=== PATIENT | female | born 1945 | race Caucasian/White ===

== ENCOUNTER 2022-03-01 08:25 | Day surgery (SDC) | payer OTHER, SELFPAY ==
[2022-02-21 08:53] VITALS: BMI 29.6
[2022-03-01] VITALS (9 sets, daily range): BP systolic 110–155; BP diastolic 50–93; PULSE 55–74; RESP 14–18; TEMP 35.9–36.8; O2SAT 91–99; BMI 29.6
[2022-03-01] MEDS: ACETAMINOPHEN 325 MG TABLET 975 MG PO (09:28)
[2022-03-01] MEDS: CELECOXIB 200 MG CAPSULE PO (09:29)
[2022-03-01] MEDS: PREGABALIN 75 MG CAPSULE PO (09:29)
[2022-03-01] MEDS: LACTATED RINGERS 1,000 ML 42 ML IV (09:31)
[2022-03-01] MEDS: VANCOMYCIN 1,000 MG/200 ML PIGGYBACK 200 MG IV (09:55)
--- NOTE | 2022-03-01 11:10 | PM.PREOP ---
Pre-operative Note COVID-19 COVID-19 status: Negative Interval Note History & Physical reviewed/Exam performed by Physician: Yes Changes to H&P: No
--- NOTE | 2022-03-01 11:11 | PM.OP.1 ---
Operative Date/Time/Diagnoses Date of procedure: 03/01/22 Time of procedure: 11:11 Pre-op diagnosis: right hip OA Post-op diagnosis: same Procedure & Clinicians Procedure: Right total hip arthroplasty anterior approach Same procedure as scheduled: Yes Indications: The patient has had progressively worsening right hip pain with radiographic changes consistent with arthritis. Non-operative management has failed and the patient has requested total hip replacement. The risks, benefits and alternatives to surgery were discussed with the patient prior to proceeding. Risks discussed included, but were not limited to, failure to relieve pain, leg length discrepancy, dislocation, stiffness, infection, nerve damage, deep venous thrombosis, pulmonary embolism, stroke, coma, heart attack, permanent paralysis and , as well as the potential need for eventual revision of the prosthetic. Surgeon: Sarina Dasilva Sales Enablement Analyst: Tatiana Garcia Anesthesia Type: General and Spinal Operative Notes Findings: Severe right hip osteoarthritis, adequate stability, soft bone Closure Type: primary Specimen(s): none sent Prosthetic devices, grafts, tissues, transplants, or devices: Dasilva and nephew 46 mm R3 cup, size 3 anthology standard offset, -3 by 28 mm Oxinium head,one 6.5 mm screw Estimated Blood Loss (mL): 250 Blood products transfused: none Procedure in detail: The patient was brought to the operating room. Patient was carefully positioned in the supine position. Time-out was performed and antibiotics were given. Anesthesia was induced. She was positioned in the on the table in order to allow hyperextension of the hip. The right lower extremity was prepped and draped in a standard sterile fashion. An anterior right hip incision was made 1 fingerbreadth lateral to the anterior superior iliac spine and extended distally towards the greater trochanter. Dissection was carried out through skin and subcutaneous tissues. Superficial hemostasis was achieved. The fascia over the tensor fascia reagan was defined and incised with a knife. Two Allis clamps were used to grasp the fascia. Tensor fascia reagan was retracted laterally. A gelpi retractor was placed. Dissection was carried out down along the neck. The circumflex vessels were carefully identified and cauterized with the Aqua Mantis. There was good visualization of the femoral neck. A Cobra was placed superior to the neck and the gluteus fibers were carefully stripped from that superior aspect of the capsule. A 2nd retractor was placed along the inferior aspect of the neck. The rectus insertion along the capsule was partially released. A 3rd retractor that was then gently placed over the rim of the acetabulum under the rectus. Capsule was carefully incised and released from the intertrochanteric line circumferentially superior to the mid sagittal line and inferiorly to the mid sagittal line until the lesser trochanter was palpable. A tag stitch was placed both in the superior and inferior limb of the capsular insertion. Along the acetabulum capsule was also released up to the mid sagittal 12:00 position. A portion of the labrum was resected. A saw was used to perform an osteotomy at the level of the intertrochanteric line and the junction of the superior femoral neck leaving approximately 1 finger breath of residual inferior neck above the lesser trochanter. A 2nd cut was made along the femoral neck at the base of the head and a napkin ring of neck was removed. Corkscrew was placed in the femoral head and the head was removed without difficulty. Retractors were then repositioned around the acetabulum. Residual labrum was resected and additional osteophytes were removed. A reamer that was 4 mm below the templated size was placed by hand in the acetabulum and it was reamed to centralize the acetabulum. It was then reamed up to 2 under the templated size and fluoroscopy was brought in to confirm the position of the reaming and depth of reaming. I reamed 1 under the anticipacipated size. A trial cup was placed and noted that it was appropriately sized and fluoroscopy confirmed position and depth. The component was open and inserted without difficulty fluoroscopic imaging was used to confirm that the cup had been adequately seated and was well positioned. It was further stabilized with a screw. Neutral poly liner was placed. The cup was tested and noted to be stable. Attention was then directed to the femur. The femur was gently hyperextended additional capsular release was performed as needed in order to allow adequate visualization of the proximal femur with elevation of the femur. Patient was placed in a hyperextended slightly adducted position with maximum external rotation. Box osteotome was used to check for any residual neck as well as sclerotic bone along the trochanter. [place] pepper was placed in the femur. Additional broaching was performed. Canal finder was used to determine the alignment of the canal and position. Size 1 broach was placed. The canal was then appropriately broached up to the templated size as long as there was adequate stability of the broach and serial advancement of the broach without excessive impingement. Specific attention was directed at avoiding varus attempting to direct the distal aspect of the broach more anteriorly and avoiding excessive anteversion. Trial reduction showed acceptable range of motion, good stability, no posterior impingement, congregational of leg length and appropriate lateral shuck. I also hyperflexed the hip and checked that there was no impingement anteriorly and there was good stability with flexion, adduction and internal rotation. Marcaine and Exparel were injected. The stem was placed without difficulty. Repeat trial reduction and x-ray showed acceptable overall position, length, and no evidence of the femoral fracture. Final head was placed. Wound was meticulously irrigated with normal saline. The hip was reduced and additional Exparel and Marcaine were injected. The capsule was closed with interrupted nonabsorbable sutures. The fascia of the tensor was closed with interrupted and running Vicryl. No drain was placed. Any tensor fascia reagan muscle that appeared to be contused or injured which was a minimal amount was carefully resected. Capsule around the tensor was injected with Exparel and Marcaine. The skin was closed with barbed stitches for the subcutaneous tissue and skin. We also used surgical glue. The wound was dressed sterilely. Brief Betadine soak was also used and was meticulously irrigated with normal saline. Patient was transferred to recovery room in satisfactory condition. Complications: none Post-operative Condition: stable Disposition: Acute Care Plan for aftercare: The patient will be maintained on a standard total hip replacement protocol with weight bearing as tolerated and anterior hip precautions. The patient will receive Aspirin and sequential compression devices for DVT prophylaxis. The patient will be discharged home when safe for the home environment.
[2022-03-01] MEDS: CEFAZOLIN 2 GM/100 ML PREMIX 100 ML IV ×2 (11:35→20:18)
[2022-03-01] MEDS: TRANEXAMIC ACID 1,000 MG VIAL 1000 MG INJ ×2 (11:35→13:25)
[2022-03-01] MEDS: BUPIVACAINE 0.25% (PF) 60 ML, EPINEPHrine 0.3 MG INJ (11:46)
[2022-03-01] MEDS: BUPIVACAINE LIPOSOME 266 MG/20 ML VIAL INJ ×2 (11:46→13:25)
--- NOTE | 2022-03-01 11:51 | SUR.OPER ---
Supine on padded [place] table with bilateral legs secured in padded positioning boots and suspended in positioning spars, operative leg in traction per surgeon. Head on one pillow. Arm on non-operative side secured on padded armboard <90 degrees abduction. Arm on operative side padded and resting across chest then secured with tape over sheet. Padded perineal post in place per surgeon.
--- NOTE | 2022-03-01 13:48 | DI.RAD.S_ITS ---
PROCEDURE: XR HIP W PEL IF DONE RT 2V INDICATIONS: RIGHT POST OP TECHNIQUE: AP pelvis and lateral view of the right hip acquired. COMPARISON: [facility], [facility], XR HIP W PEL IF DONE RT 2V, 03/01/2022, 12:31. FINDINGS: Bones: Patient is status post right hip arthroplasty, with hardware components in expected positions. The hip joint appears congruent. The visualized bony structures appear intact. Soft tissues: Overlying postoperative changes are noted. No suspicious soft tissue densities. IMPRESSION: Postop changes from right total hip arthroplasty with anatomic right hip alignment. Dictated by: Elvis Pickens M.D. on 03/01/2022 at 15:43 Approved by: Elvis Pickens M.D. on 03/01/2022 at 15:43
--- NOTE | 2022-03-01 14:07 | SUR.PHASEI ---
report called to Annita Reilly and opportunity for questions given. Pt going to room 210 and is agreeable.
[2022-03-01] MEDS: LACTATED RINGERS 1,000 ML 125 ML IV (14:29)
--- NOTE | 2022-03-01 15:00 | DI.RAD.S_ITS ---
PROCEDURE: XR HIP W PEL IF DONE RT 2V INDICATIONS: prosthesis placement TECHNIQUE: 4 intraoperative fluoroscopic images of right hip acquired. COMPARISON: None. FINDINGS: Intraoperative fluoroscopic images shows right total hip arthroplasty in progress. Right hip alignment is anatomic. IMPRESSION: Fluoro guidance was provided intraoperatively for right total hip arthroplasty. Dictated by: Elvis Pickens M.D. on 03/01/2022 at 13:53 Approved by: Elvis Pickens M.D. on 03/01/2022 at 13:54
--- NOTE | 2022-03-01 15:47 | PT-IP ANOTE ---
checked with nurse and stated that pt is still numb on her LE. Pt not ready for PT. will check tomorrow.
[2022-03-01] MEDS: ASPIRIN EC 81 MG TABLET PO (20:18)
[2022-03-01] MEDS: DOCUSATE 100 MG CAPSULE PO (20:18)
[2022-03-02 00:50] VITALS: BP 148/55; PULSE 60; RESP 18; TEMP 36.4; O2SAT 98
[2022-03-02] MEDS: CEFAZOLIN 2 GM/100 ML PREMIX 100 ML IV (04:25)
[2022-03-02 05:11] VITALS: BP 116/47; PULSE 60; RESP 18; TEMP 36.4; O2SAT 98
[2022-03-02 05:39] LABS: Hematocrit 35.3 % (36-46); Hemoglobin 11.9 g/dL (12.0-16.0)
--- NOTE | 2022-03-02 08:18 | P.DS_ITS ---
History of Present Illness History of Present Illness Date Patient Seen: 03/02/22 Time Patient Seen: 08:18 Chief complaint: right hip pain Narrative: Patient's right hip pain is mild. Denies fever chills. No nausea vomiting. She will be staying with a friend that will be a will to assist her upon discharge home. Otherwise without complaints. Discharge Providers Provider Discharge Date: 03/02/22 Primary care physician: Pito Sparrow MD Consults: 02/28/22 13:56 Consult to Anesthesiology Routine Comment: Consulting Provider: Anesthesiologist Reason for consultation: Regional block for post operative pain control 03/01/22 14:16 Consult to Discharge Planning Routine Comment: Consult to Physical Therapy Evaluate & Treat Comment: Physician Instructions: post op NUBIA protocol Consult to Respiratory Therapy Evaluate & Treat Comment: Physician Instructions: Evaluate and treat Discharge provider: Ahmet Michelle PA-C Summary Hospital Course Discharge Diagnosis: Right hip osteoarthritis Hospital Course: Right total hip arthroplasty anterior approach Same procedure as scheduled: Yes Indications: The patient has had progressively worsening right hip pain with radiographic changes consistent with arthritis. Non-operative management has failed and the patient has requested total hip replacement. The risks, benefits and alternatives to surgery were discussed with the patient prior to proceeding. Risks discussed included, but were not limited to, failure to relieve pain, leg length discrepancy, dislocation, stiffness, infection, nerve damage, deep venous thrombosis, pulmonary embolism, stroke, coma, heart attack, permanent paralysis and , as well as the potential need for eventual revision of the prosthetic. Surgeon: Sarina Dasilva Dynamometer Tester: Tatiana Gracia Anesthesia Type: General and Spinal Operative Notes Findings: Severe right hip osteoarthritis, adequate stability, soft bone Closure Type: primary Specimen(s): none sent Prosthetic devices, grafts, tissues, transplants, or devices: Dasilva and nephew 46 mm R3 cup, size 3 anthology standard offset, -3 by 28 mm Oxinium head,one 6.5 mm screw Estimated Blood Loss (mL): 250 Blood products transfused: none Patient admitted to the hospital for right total hip arthroplasty, anterior approach. Patient consented to the same. Patient taken operating room March 01, 2022. Patient underwent right total hip arthroplasty, anterior approach. Patient back in her room recovering well as in stable condition. Patient will mobilize with physical therapy this morning and be discharged home today if safe for home environment. Exam Vital Signs (past 8 hours): - 03/02/22 00:50 03/02/22 05:11 Temperature 97.6 F 97.5 F L Pulse Rate 60 60 Respiratory Rate 18 18 Blood Pressure 148/55 H 116/47 L Pulse Oximetry 98 98 Oxygen Flow Rate 0 0 Oxygen Delivery Method Room Air Oxygen Flow Rate 0 Narrative Exam Narrative: 76-year-old female resting comfortably in bed in no apparent distress. Right hip dressing is Clean, dry, intact.. Motor functions intact right lower extremity. Sensation grossly intact light touch. Const General: cooperative, healthy appearing and comfortable Objective Labs Result Diagrams: 03/02/22 05:20 Labs: Laboratory Results - last 24 hr 03/02/22 05:20 Hgb 11.9 L Hct 35.3 L PFSH Medical History Hearing impaired Osteoarthritis Pre-diabetes Surgical History Hx of bilateral cataract extraction (2020) Hx of tonsillectomy Social History household members: none Smoking Status: Former smoker alcohol intake: current Discharge Assessment & Plan Assessment and Plan Assessment: Patient progressing as expected status post right total hip arthroplasty, ante rior approach Plan of Treatment: Mobilize with physical therapy, weight-bearing as tolerated, anterior hip precautions Multimodal pain management, patient has prescription for oxycodone at home Discharge home today in stable condition after physical therapy if safe for home environment. Discharge Plan Discharge Plan Patient Disposition: Home Discharge orders & Medications Discharge Orders: Discharge (Order); Ordered 03/02/22 Ordered By: Ahmet Michelle Prescriptions: New acetaminophen 325 mg Tablet 650 mg PO Q6HR Qty: 60 0RF aspirin 81 mg Tablet,Delayed Release (Dr/Ec) 81 mg PO BID Qty: 60 0RF Discontinued naproxen sodium 220 mg Capsule 440 mg PO DAILY Follow up/Referrals: Pito Sparrow MD [Primary Care Provider] - Sarina Dasilva MD [Physician] - As previously scheduled (Follow up with Ahmet Michelle PA-C, on 03/17/2022 @ 1:20 pm at [employer] office in [place].) Diet/Activity/Treatments Diet: Diet as Tolerated Activity: Walk frequently! Weight bearing as tolerated to right leg. Anterior hip precautions. Cold/Heat Therapy: Ice as needed to hip for pain. Skin/Wound/Dressing Care Report to your healthcare provider any signs of infection, such as:: chills, fever, night sweats, unusual drainage and unusual redness Dressing: May shower. Leave Aquacel dressing in place until follow up appointment. No bathing or otherwise soaking incision. Visit Report/Discharge Packet Instructions: DI for Hip Replacement Stand Alone Forms: Surgery Discharge Discharge Data Primary Care Provider: Pito Sparrow Attending Provider: Sarina Dasilva VTE Deep Vein Thrombosis/Pulmonary Embolism Present on Admission: No
[2022-03-02 08:34] VITALS: BP 125/65; PULSE 64; RESP 18; TEMP 36.4; O2SAT 94
--- NOTE | 2022-03-02 09:08 | CM.DANOTE ---
DCP: Case received, EMR reviewed and met with patient. Introduced self and role. Was able to obtain informatin regarding patient's baseline activity level prior to her surgery, as well as her current living situation. DCP assessment completed with information currently available. Patient is a 76 year old female who admitted yesterday morning to the care of the orthopedic team. PCP: Dr. Sparrow. Payer: confirmed: [employer]. Patient came to the hospital via private vehicle for a surgical procedure. Patient had right total hip arthroplasty anterior approach. Patient has history of osteoarthritis of her right hip. Met with patient in her room. She was initially sitting up on the commode, returned later when she was back in bed. She is alert and oriented. Patient resides in [facility] [address] [facility]. Confirmed with her that she does reside alone. At her baseline, she is independent, and uses no DME. Patient confirmed she will be staying with her friend who lives nearby, since she has no stairs. P: Patient has discharge orders, pending working with Jose Sweeney RN/Roller Die Cutting Machine Operator Discharge Planning/Care Management CM Discharge Assessment Start: 03/02/22 09:07 Freq: Status: Active Protocol: Document 03/02/22 09:07 (Rec: 03/02/22 09:08 [id number]) Discharge Planning Assessment Assigned Merchant Police Lucita Sweeney RN/Roller Die Cutting Machine Operator Advance Directives? Yes Advance Directives on File No History Provided By Patient,Medical Record Prior Living Arrangements House Household Members none Type of transporation used prior to Drives own vehicle admit Independent with ADL's Yes Is patient alert and oriented? Yes Caregiver for Another No Patient/Family Preference OP PT Therapy Discharge Plan Home Transportation Arrangement Friend Referrals Initiated None needed Whiteboard Updated in Patient Room with Yes name and ext. # of Merchant Police Review Status In Process Next Review Type Continued Stay Review Pre-Anesthesia Assessment Start: 02/21/22 08:53 Freq: Status: Complete Protocol: Document 02/21/22 08:53 CAB (Rec: 02/21/22 09:21 CAB [id number]) Pre-Anesthesia Assessment Patient Information Reviewed Via Phone Assessment Assessment Completed With Patient Diagnostic Results BMP/CMP,CBC,EKG,Urinalysis Comment Outside labs/ECG scanned, Covid screen @ [facility] 02/28/22 Primary Care Provider Pito Sparrow Seen Specialist in Last 12 Months Yes Specialist Seen Opthamologist/Maintenance Apprentice, Orthopedist Primary Language Hungarian Tool And Fixture Repairer Required No Height 5 ft 1 in Weight 157 lb Body Mass Index (BMI) 29.6 Hearing Ability Use of Hearing Aid Visual Assist Magnifying Glass Dentition Type Teeth, Natural Present Barriers to Learning None Hx Anesthesia Reactions No Hx Family Anesthesia Reaction No Hx Malignant Hyperthermia No Hx Blood Transfusions No Anesthesia Review Requested No alcohol intake current Alcohol Intake Frequency Other: Occasional Smoking Status Former smoker how long ago did patient quit smoking Quit age 42 Substance Use Type does not use Pain Present Pain Reported Musculoskeletal Symptoms Abnormal Gait,Difficulty Walking,Joint Pain History of Falling (Recent or History of No ) Patient is completely paralyzed or No completely immobile Mental Status Oriented to own ability Is patient on oxygen? No Does patient have STERN/SOB No Hx Sleep Apnea No Currently Taking a Beta Caitlin No Can You Climb a Flight of Stairs Without No SOB Hx Chest Pain No Hx SOB No Hx Syncope or Dizziness No Anti-Coagulant Therapy No Has a Hair And Makeup Designer No Cardiac Testing No Hx Pacemaker/ICD No Pacemaker Rep Required? No Cardiac Clearance Received No Diet Type At Home Regular dysphagia No Urinary Catheter Present No Hx Urinary Self Catheterization No Diabetes No: Pre-diabetes Patient No Lactating No Hx Drug Resistant Organism No Presence of External or Internal Medical Yes: Bilat eye IOLs Devices Have you had any close contact with No someone diagnosed with COVID-19? Received a COVID vaccine? Yes Received all doses? Yes Marital Status Lives With none Prior Living Arrangements House Number of Floors (Floors) One Floor Support System Friend(s) Does the Patient Have Assistance After Yes: Pt will stay with friend Surgery at [place] for assistance Patient Discharge Plan Description Other Comment Pt advised overnight length of stay per surgeon Feels Safe in Current Environment Yes Been Physically Hurt or Threatened By a No Person in Current Environment Do you have thoughts of harming yourself None or others? Are you currently considering suicide? No Do you have a plan to hurt yourself or No Plan others? Do You Have Any Spiritual Beliefs That No May Affect Your HC Choices? Do You Have Any Cultural Practices That No May Affect Your HC Choices? Comment Opportunist Agnostic Who Can We Speak to About Patient's Care Family, friends Identifying Code for Release of Patient Declines to issue Information Health Care Proxy/Next of Kin Evie Estrella (good friend) Health Care Proxy Emergency Contact Name Tate Pa (Goddaughter) Emergency Contact Advance Directives? Yes Advance Directives on File No Requested Patient Bring Advanced Yes Directives DOS Power of Door Technician Yes Power of Door Technician Name Mallory Bingham (Juan) Power of Door Technician PAC Instructions Do not shave/clip surgical site,Durable medical equipment ,Medications to take/avoid, Nasal antibiotic,No ETOH/ petroleum product on skin DOS, NPO,Pre-surgical wash,Sensory aids,Sturdy shoes/comfortable clothes,Do not bring valuables and remove jewelry
[2022-03-02] MEDS: ASPIRIN EC 81 MG TABLET PO (09:09)
[2022-03-02] MEDS: DOCUSATE 100 MG CAPSULE PO (09:09)
--- NOTE | 2022-03-02 09:32 | PT.IIE ---
Addendum entered and electronically signed by Arianne Santamaria PT 03/02/22 13:39: This is to certify that I am involved and in direct supervision of this pt's care. Original Note: Current Diagnoses Unilateral primary osteoarthritis, right hip (03/01/22) Surgery Performed Operation Date: 03/01/22 10:45 Actual Procedures p Total Hip Arthroplasty/Anterior Approach(Right) - Sarina Dasilva MD Surgical History (Last Reviewed 03/02/22 @ 08:22 by Ahmet Michelle PA-C) Hx of bilateral cataract extraction (2020) Hx of tonsillectomy Medical History (Last Reviewed 03/02/22 @ 08:22 by Ahmet Michelle PA-C) Hearing impaired Osteoarthritis Pre-diabetes Physical Therapy Inpatient Evaluation/Re-Eval M1 PT/OT-IP Prior Functional Status Start: 03/02/22 11:58 Freq: NEEDED Status: Active Protocol: Document 03/02/22 09:32 (Rec: 03/02/22 13:33 [id number]) Medical Review Prior Functional Status Medical History Reviewed Yes Communication pt able to make needs known Mobility and Gait pt states that she is independent with all mobilities and ambulation without AD. Able to walk 1 block before onset of pain prior to surgery. Social History Household Members none Living Arrangements House Number of Floors (Floors) One Floor Number of Stairs To Enter/Railing? 1 step to enter house Home Environment Standard Height Toilet,Walk in Shower,Bidet Home Equipment Front Wheel Walker,Hand Held Shower Additional Social History Comment Pt plans to stay with friend for 1-2 weeks. Pt states that friend will be able to assist 06/02. Home set up provided is regarding the friends house. M2 PT-IP Current Condition Start: 03/02/22 11:58 Freq: NEEDED Status: Active Protocol: Document 03/02/22 09:32 (Rec: 03/02/22 13:33 [id number]) Physical Therapy Current Condition Current Condition Evaluation Date 03/02/22 Treatment Diagnosis s/p R NUBIA anterior; difficulty in walking Onset Date 03/01/2022 M3 PT-IP Subjective Start: 03/02/22 11:58 Freq: NEEDED Status: Active Protocol: Document 03/02/22 09:32 (Rec: 03/02/22 13:33 [id number]) Subjective Physical Therapy Visit Type Type Initial Evaluation Visit Start Time 09:32 Visit Stop Time 10:14 Total Visit Minutes [address] Visits 0 Physical Therapy Visit Comments Patient Comments Pt agreeable to do PT. M4 PT-IP Mobility and Gait Start: 03/02/22 11:58 Freq: NEEDED Status: Active Protocol: Document 03/02/22 09:32 (Rec: 03/02/22 13:33 [id number]) PT-Bed Mobility Assessment Supine to Sit Supine to Sit Standby Assistance Scooting Scooting to Edge of Bed Standby Assistance PT-Transfer Assessment Sit to and From Stand Sit to and from Stand Standby Assistance,Contact Guard Assistance,1 Person Assistance,Use of Upper Extremities Equipment Transfer Assistive Device Gait Belt,Front Wheeled Walker Orthotic/Prosthetic Devices or Brace: No Transfers Transfer Destination Chair Transfer Technique ambulation Transfer Ability Level of Assist Standby Assistance,Contact Guard Assistance Comments Mobility Comments Educated pt regarding Anterior Hip precautions, pt understood. Pt BP in supine: 110/44. completed supine to sit at EOB SBA, no cues. Able to sit on EOB SBA. Does not c/ o pain, dizziness, lightneadedness. completed sit to stand with FWW CGA, no cues. pt ambulated 50ft with FWW CGA, min cues and transfered to chair. Pt agreed to ambulate more and practice stairs. pt ambulated 200ft to stairs with FWW SBA to CGA, min cues. Pt ascended and descended 1 platform step with FWW, CGA mod cues. Able to repeat with SBA and no cues. Pt ambulated 200ft back to room with FWW SBA, no cues and agreed to be positioned in chair. positioned on chair, call light and table placed within reach. Pt has no other concerns. Gait Assessment Gait Gait Assistance Required: Standby Assistance,Contact Guard Assist Distance (Feet) 200 Able to Maintain Weight Bearing Status Yes During Gait Assistive Devices Assistive Device Gait Belt,Front Wheeled Walker Orthotic/Prosthetic Devices or Brace: No Gait Deviations General Gait Pattern Ataxic,Decreased Stride Length ,Decreased Feet Clearance, Narrow Based Gait,Step-to Gait Factors Limiting Gait Function Factors Limiting Gait Function Decreased Activity Tolerance, Decreased Strength, Incoordination,Limited Range of Motion,Pain,Poor Balance, Poor Safety Awareness Stair Climbing Assessment Evaluation Level of Assist On Stairs Standby Assistance,Contact Guard Assistance,1 Person Assistance Devices Stair Climbing Assistive Devices Front Wheel Walker Technique/Endurance Stair Climbing Direction Ascend and Descend Stair Climbing Technique Step to Step Number of Steps Climbed 1 Query Text: Stair Climbing Set # Repetitions (reps) 2 Comments Stair Climbing Comments See mobility comment PT-Balance Assessment Sitting Balance and Reactions Static Sitting Balance Ability Good Dynamic Sitting Balance Ability Good Standing Balance and Reactions Static Standing Balance Ability Good Dynamic Standing Balance Ability Fair Device Used FWW M5 PT-IP Objective Assessments Start: 03/02/22 11:58 Freq: NEEDED Status: Active Protocol: Document 03/02/22 09:32 (Rec: 03/02/22 13:33 [id number]) Orientation Orientation/Cognition Level of Alertness Alert Orientation Name,Place,Situation Language Function Ability No Deficits Noted Safety Awareness Understands Safety Issues Memory Description No Deficits Noted Gross Range of Motion Lower Extremity ROM Assessment Right Impaired Impairments Tightness limiting ROM on R hip flexion. Strength Lower Extremity Strength Assessment Right Impaired Hip 3+/5 Knee 4-/5 Ankle 4/5 Muscle Tone Muscle Tone WNL Yes M6 PT-IP Treatment Start: 03/02/22 11:58 Freq: NEEDED Status: Active Protocol: Document 03/02/22 09:32 (Rec: 03/02/22 13:33 [id number]) Physical Therapy Treatment Education Education Provided Precautions,Weight Bearing Status,Post-Op Packet,Safety M7 PT-IP Assessment and Plan Start: 03/02/22 11:58 Freq: NEEDED Status: Active Protocol: Document 03/02/22 09:32 (Rec: 03/02/22 13:33 [id number]) PT Summary Assessment and Plan Potential Rehabilitation Potential Good Status of Condition at Evaluation Stable Summary Impairments Pain,ROM,Strength,Balance, Coordination,Gait,Activity Tolerance Progress Towards Goals Slow Progress due to Pain,Slow Progress due to Activity Tolerance Assessment Summary Pt s/p R NUBIA anterior and had surgery yesterday. Pt requiring SBA to CGA with mobilty and ambulation using FWW. Pt will be staying with friend for a week who will be able to provide 24/7 assistance. Pt has OP PT scheduled. Goals Bed Mobility Goal Independent Transfer Goal Independent,Front Wheeled Walker Gait Goal Independent,Front Wheel Walker Gait Distance 400 Other Goals Pt will be able to ascend and descend 1 platform step indepdently with a FWW. Pt will be able to ambulate 200ft independently without an AD. Days to Meet Goals 5 Frequency of Treatment Frequency Of Treatment Twice a Day Treatment Plan Physical Therapy Treatment Plan Bed Mobility Training,Transfer Training,Gait Training, Therapeutic Exercise,Balance Retraining,Post Op Education, Discharge Planning,Hot or Cold Pack,Neuromuscular Re-ed, Coordination Retraining,Manual Therapy Precautions Anterior Hip Precautions No Hip Extension,No Hip External Rotation Weight Bearing Status Weight Bearing Status Weight Bear as Tolerated Allowed Weight Bearing Amount (enter % pt is WBAT on R LE. or #) (%) Recommendations To Nursing Amount of Assist Needed 1 Person Assist Discharge Recommendations PT Discharge Recommendations Home with Assistance, Outpatient PT Transportation Needs at Discharge Private Vehicle
== END 2022-03-02 10:45 | disposition home or self-care (01) ==
LOC: OR 08:30 → AC 08:32
PROVIDERS: PCP Internal Medicine; Referring Provider Orthopaedic Surgery; Visit Provider Orthopaedic Surgery
PROC: (CPT 27130; principal; 2022-03-01 10:45)
DX: M16.11 Unilateral primary osteoarthritis, right hip (principal); R73.03 Prediabetes; I10 Essential (primary) hypertension
CPT/HCPCS: 27130; 36415; 73502; 76000; 85014; 85018; 97161; 97530; C1776; C9290; J0171; J0690; J1100; J2250; J2274; J2405; J2704; J3010